=== PATIENT | female | born 1970 | race Caucasian/White ===

== ENCOUNTER 2023-11-20 07:31 | Day surgery (SDC) | payer OTHER ==
[~2023-11-20] VITALS: Ht 149.9 cm; Wt 72.6 kg
[2023-11-20] MEDS ORDERED: LIDOCAINE 2% 100 MG/5 ML UJET TP ONE (08:44)
[2023-11-20] MEDS ORDERED: fentaNYL citrate 0.05 MG/ML VIAL ONE (08:44)
[2023-11-20] MEDS: fentaNYL citrate 0.05 MG/ML VIAL IVP ONE (09:06)
== END 2023-11-20 10:12 | disposition home or self-care (01) ==
LOC: MMU 07:31 → MOR 07:31
PROVIDERS: ATTEND Internal Medicine Gastroenterology
DX: Z12.11 Encounter for screening for malignant neoplasm of colon (principal); K57.30 Diverticulosis of large intestine without perforation or abscess without bleeding; E78.00 Pure hypercholesterolemia, unspecified; Z98.51 Tubal ligation status; Z80.0 Family history of malignant neoplasm of digestive organs; Z79.899 Other long term (current) drug therapy; Z98.890 Other specified postprocedural states
CPT/HCPCS: J3010